=== PATIENT | male | born 1990 | race Caucasian/White ===

== ENCOUNTER 2018-10-08 14:05 | Emergency (ER) | payer OTHER ==
[~2018-10-08] VITALS: Ht 175.3 cm; Wt 61.7 kg
[2018-10-08 14:12] VITALS: Ht 175.3 cm; Wt 61.7 kg
[2018-10-08 16:28] VITALS: BP 115/69
== END 2018-10-08 16:28 | disposition home or self-care (01) ==
LOC: ED 14:05
DX: R11.10 Vomiting, unspecified (principal); F12.90 Cannabis use, unspecified, uncomplicated
CPT/HCPCS: J0780; J1885; Q0162